=== PATIENT | female | born 1965 | race Caucasian/White ===

== ENCOUNTER 2023-02-23 09:27 | Emergency (ER) | payer MEDICARE, SELFPAY ==
[2023-02-23 09:28] VITALS: BP 146/94; PULSE 80; RESP 14; TEMP 36.3; O2SAT 100; BMI 38.6
--- NOTE | 2023-02-23 09:56 | CT_ITS ---
STUDY: CT ABDOMEN AND PELVIS WITH CONTRAST REASON FOR EXAM: Female, 57 years old. Abdominal pain. 4 day history of constipation. RADIATION DOSAGE (If Supplied By Facility): CTDIvol = ( 26.86 ) mGy, DLP = ( 1377.34 ) mGycm TECHNIQUE: Transaxial images were obtained from the dome of the diaphragm to the symphysis pubis without oral contrast. IV 100mL Isovue-300 was administered. Sagittal and coronal images were reconstructed. Individualized dose optimization techniques were used for this CT. COMPARISON: None. FINDINGS: Postsurgical changes are seen in the right breast. The visualized lung bases are unremarkable. The visualized portions of the heart are within normal limits. There is decreased attenuation of the liver consistent with steatosis. There is evidence of a 2.4 cm cyst in the inferior aspect of the right lobe of the liver. Normal gallbladder and extrahepatic biliary system. Normal spleen. Normal pancreas. Normal bilateral adrenal glands. Normal right kidney. Normal left kidney. There is a small hiatal hernia. Normal small intestine. A large amount of fecal material is seen in the rectosigmoid colon. Moderate amount is seen within the proximal colon. Increased markings are seen in the surrounding peritoneal fat surrounding the rectum. An inflammatory process should be ruled out. The appendix is visualized and appears normal. Normal abdominal aorta. Normal inferior vena cava. Normal retroperitoneum. Normal urinary bladder. Surgical clips are seen in the inguinal regions bilaterally more prominent on the left side. There are degenerative changes of the visualized lumbar spine. CT/Abdomen/Pelvis W IV Cont ONLY IMPRESSION: Large amount of fecal material is seen in the rectosigmoid colon as described. Increased markings are seen in the perirectal fat and presacral space. An inflammatory process should be ruled out. Rectal examination recommended to rule out possible abnormality. Fatty infiltration of the liver. 2.4 cm cyst in the inferior aspect of the right lobe of the liver. Electronically Signed: Dax Diaz MD at 11:08 EDT ,
--- NOTE | 2023-02-23 09:57 | EDS_ITS ---
HPI HPI - GI History of Present Illness Chief Complaint: Constipation Narrative Narrative: 57-year-old female presenting with constipation and abdominal pain. She states is been an ongoing issue for about 4 months. Initially she saw Dr. Rhoades but is now following Dr. Gilliland. She states that she is scheduled for a CT scan tomorrow of the abdomen pelvis, and a colonoscopy next Wednesday. Patient has not had any imaging done of her abdomen as of yet. She states that typically she will have a bowel movement every 4 days. She has to give herself laxatives to do so. Last night she took 2 Ex-Lax and this morning she took 2 more as well. She describes bowel leakage. Without loss of bladder or bowel control. No saddle anesthesia/ paresthesia, and no back pain. Patient states that she was straining so hard earlier on the toilet she got a little lightheaded. She is now complaining of nausea. She states that she has had 2 C-sections in her abdomen but no bowel surgeries. She states she has a history of breast cancer and had some abdominal fat redistributed to her breast for aesthetic reasons. Patient is not had a fever, chills, body aches. She is reporting weight loss but states she is on an 1100/day diet. [facility] Medical History (Updated 02/23/23 @ 09:59 by Sarah Reed) Breast cancer Constipation Trigeminal nerve disease or syndrome Home Medications ondansetron 4 mg disintegrating tablet 4 mg PO Q8H PRN PRN Nausea #14 tabs 02/23/23 [Rx Last Taken Unknown] Allergy/AdvReac Type Severity Reaction Status Date / Time Environmental Allergies: Allergy Other Verified 02/23/23 09:33 Uncoded [seasonal] Fish Containing Products Allergy PT UNSURE Verified 02/23/23 09:33 OF REACTION Penicillins Allergy Hives Verified 02/23/23 09:33 Social History Smoking Status: Never smoker ROS ROS ED Constitutional Constitutional ED: Denies chills or fever(s) ENT ENT ED: Denies rhinorrhea or sore throat Cardiovascular Cardiovascular: Denies chest pain or palpitations Respiratory/Chest Respiratory/Chest: Denies cough or dyspnea Gastrointestinal Gastrointestinal: Reports abdominal pain, constipation, diarrhea and nausea Genitourinary Genitourinary ED: Denies dysuria or hematuria Musculoskeletal Musculoskeletal: Denies arthralgias Integumentary Denies abscess Neurologic Neurologic: Denies headache(s) or paresthesias Psychiatric Psychiatric: Denies anxiety or depression Endocrine Endocrinology: Denies polydipsia or polyphagia EXAM Physical Exam Const Vital Signs: 02/23/23 09:28 Temperature 97.4 F L Temperature Source Temporal Pulse Rate 80 Respiratory Rate 14 Blood Pressure 146/94 H Blood Pressure Mean 111 Pulse Ox 100 Oxygen Delivery Method Room Air Positive well nourished and obese General Appearance ED: NAD Nutritional Appearance: obese HEENT Reports moist mucous membranes normocephalic and atraumatic Eyes PERRL General Eye ED: Negative for scleral icterus Resp normal respiratory effort Cardio regular rate and regular rhythm GI Inspection: Negative for abdominal distention Auscultation: hypoactive bowel sounds Palpation: Negative for guarding, rigid, mass or rebound tenderness present Back/Spine no CVA tenderness Neuro CN's II-XII intact bilaterally Sensorium / Orientation: alert Psych mental status grossly normal Skin no wounds MDM MDM MDM Narrative Medical decision making narrative: 57-year-old female presenting with abdominal pain, constipation which has been ongoing for about 4 months. She has been seeing Dr. Gilliland on an outpatient basis. She states that she is scheduled for a CT scan tomorrow and a colonoscopy on Wednesday. She reports diffuse abdominal pain. Her examination is fairly benign. Differential includes but is not limited to GERD, gastritis, peptic ulcer disease, acute cholecystitis, acute cholelithiasis, appendicitis, diverticulitis, pancreatitis, small bowel obstruction, neoplasm, viral etiology, food poisoning. Patient declines opiate analgesia. She is amenable to nausea medicine. I gave her Reglan. CBC to assess white blood cell count, hemoglobin, platelets, differential. CMP to assess liver function, renal function, electr olytes, glucose, anion gap. Lipase to assess for pancreatitis. CT of the abdomen pelvis with IV contrast will be obtained. CBC shows a normal white blood cell count at 10.4. Hemoglobin stable 13.4. Platelets normal at 250. Renal function and electrolytes unremarkable. LFTs are normal. Lipase is normal. Urinalysis negative for infection. Patient initially ordered Reglan however the patient refused. She was then given Zofran which helped her nausea. CT of the abdomen pelvis with IV contrast was obtained which shows concern for a large amount of stool in the rectosigmoid junction. Patient had a soapsuds enema and a very large bowel movement afterwards. She feels very much improved. I recommend she follow-up with Dr. Gilliland. Return precautions were discussed. Impression: 1. Abdominal pain 2. Nausea 3. Constipation Lab Data Attestation: I reviewed the patient's lab results. Labs: Laboratory Results - last 24 hr 02/23/23 02/23/23 02/23/23 10:10 10:10 10:20 WBC 10.4 RBC 4.19 L Hgb 13.4 Hct 39.2 MCV 93.6 MCH 32.0 MCHC 34.2 RDW Std Deviation 40.3 RDW Coeff of Jennifer 11.7 Plt Count 250 MPV 8.8 Immature Gran % (Auto) 0.300 Neut % (Auto) 89.7 H Lymph % (Auto) 5.3 L Carbon % (Auto) 4.2 Eos % (Auto) 0.4 Baso % (Auto) 0.1 Absolute Neuts (auto) 9.4 H Absolute Lymphs (auto) 0.55 L Nucleated RBC % 0 Differential Comment SCANNED Sodium 135 L Potassium 3.9 Chloride 106 Carbon Dioxide 26.0 Anion Gap 3 L BUN 13 Creatinine 0.74 Estim Creat Clear Calc 80.58 Est GFR (MDRD) Af Amer 103 Est GFR (MDRD) Non-Af 85 BUN/Creatinine Ratio 17.5 Glucose 120 H Calcium 8.9 Total Bilirubin 0.20 AST 22 ALT 34 Alkaline Phosphatase 78 Total Protein 7.1 Albumin 3.5 Globulin 3.6 Albumin/Globulin Ratio 1.0 Lipase 31 Urine Color Yellow Urine Clarity Sl. Cloudy Urine pH 5.0 Ur Specific [place] 1.015 Urine Protein 15 H Urine Glucose (UA) Normal Urine Ketones Negative Urine Occult Blood 25 H Urine Nitrite Negative Urine Bilirubin Negative Urine Urobilinogen Normal Ur Leukocyte Esterase Negative Urine RBC 0 SEEN Urine WBC 0 SEEN Ur Squamous Epith Cells 0-5 SEEN Urine Bacteria 0 SEEN Urine Mucus 0 SEEN Radiography Diagnostic Testing: Clinical Impression(s) from Imaging Studies Abdomen/Pelvis CT 02/23/23 09:56 IMPRESSION: Large amount of fecal material is seen in the rectosigmoid colon as described. Increased markings are seen in the perirectal fat and presacral space. An inflammatory process should be ruled out. Rectal examination recommended to rule out possible abnormality. Fatty infiltration of the liver. 2.4 cm cyst in the inferior aspect of the right lobe of the liver. Electronically Signed: Dax Diaz MD at 11:08 EDT , Discharge Plan Triage Chief Complaint: Constipation Other Complaint: Dizziness ED Provider: Gavin Julien Dx/Rx/DC Orders Instructions: ED Constipation (Adult) Prescriptions: New ondansetron 4 mg tablet,disintegrating 4 mg PO Q8H PRN PRN (Reason: Nausea) Qty: 14 0RF Primary Care Provider: Kiara Mckenzie Referrals: Renetta Benitez CARDIOLOGY NURSE PRACTITIONER, CARDIOLOGY NURSE PRACTITIONER-C [Non-Staff -Ordering Privileges] - Disposition Disposition: Home, Self Care
[2023-02-23 10:23] LABS: Absolute Lymphocyte Count 0.55 X10^3/uL (0.83-4.51); Absolute Neutrophil Count 9.4 X10^3/uL (2.0-7.7); Basophil# 0.01 X10^3/uL; Basophil% 0.1 % (0-1); Eosinophil# 0.04 X10^3/uL; Eosinophils% 0.4 % (0-5); Hematocrit 39.2 % (37-47); Hemoglobin 13.4 g/dL (12.0-15.0); Lymphocyte # 0.55 X10^3/ul (0.83-4.51); Lymphocyte % 5.3 % (19-41); Mean Corp Hgb Conc 34.2 g/dL (32-36); Mean Corpuscular Volume 93.6 fL (81-99); Mean Platelet Vol. 8.8 fl (6.2-12.0); Monocyte# 0.44 X10^3/uL; Monocyte% 4.2 % (0-10); NRBC Flagged by Analyzer 0 % (0-5); Neutrophil # 9.36 X10^3/uL (2.7-7.7); Neutrophil % 89.7 % (47-70); POSITIVE DIFFERENTIAL YES; Platelet Count 250 K/mm3 (150-450); RBC Distribution Width CV 11.7 % (11.6-14.6); RBC Distribution Width SD 40.3 fl (35.1-43.9); Red Blood Count 4.19 M/mm3 (4.2-5.4); White Blood Count 10.4 K/mm3 (4.4-11.0)
[2023-02-23 10:24] LABS: Differential Indicated SCAN CRITERIA MET
[2023-02-23 10:26] LABS: Bacteria 0 SEEN /hpf (None Seen); Mucous, Urine 0 SEEN /hpf (<or=2+); Red Blood Cells-Urine 0 SEEN /hpf (0-5); White Blood Cells 0 SEEN /hpf (0-5)
[2023-02-23 10:28] LABS: Color, Urine Yellow (Yellow); Glucose, Dipstick Normal (Normal); Ketone-Dipstick Negative (Negative); Leukocyte Esterase-Dipstick Negative /ul (Negative); Nitrite-Dipstick Negative (Negative); Occult Blood-Urine 25 /ul (Negative); Protein-Dipstick 15 mg/dl (Negative); Specific Gravity, Urine 1.015 (1.002-1.030); Urine Bilirubin Dipstick Negative (Negative); Urine Clarity Sl. Cloudy (Clear); Urine Urobilinogen Normal (Normal)
[2023-02-23 10:34] LABS: AST(SGOT) 22 U/L (15-37); Alanine Aminotransfer ALT/SGPT 34 U/L (13-56); Albumin, Serum 3.5 g/dL (3.2-5.0); Alkaline Phosphatase 78 U/L (45-117); Anion Gap 3 (5-15); BUN 13 mg/dL (7-18); BUN/Creat Ratio 17.5 RATIO (10-20); Calcium,Total 8.9 mg/dL (8.5-10.1); Chloride 106 mmol/L (98-107); Creatinine, Serum 0.74 mg/dL (0.55-1.02); EST Glomerular Filtration Rate 85 mL/min (>60); Est Glom Filt Rate - Afr Amer 103 mL/min (>60); Estimated Creatinine Clearance 80.58 ml/min; Globulin 3.6 g/dL (2.2-4.2); Glucose 120 mg/dL (74-106); Lipase 31 U/L (13-75); Potassium 3.9 mmol/L (3.5-5.1); Protein, Total 7.1 g/dL (6.4-8.2); Sodium Level 135 mmol/L (136-145)
[2023-02-23 10:34] LABS: Squamous Epithelial Cells - UA 0-5 SEEN /hpf (5-10)
[2023-02-23 10:52] LABS: Differential Comment SCANNED
--- NOTE | 2023-02-23 12:29 | ED.RN ---
PATIENT COMPLAINS OF PAIN TO LEFT AC IV SITE. STATES IN CT THE IV WAS LEAKING BUT THIS NURSE WAS NOT NOTIFIED OF SUCH. UNABLE TO WITHDRAWAL BLOOD OR PUSH SALINE THROUGH THE CATHETER AT THIS TIME. IV SITE ITSELF WAS UNREMARKABLE, NO SWELLING OR REDNESS NOTED. IV DISCONTINUED AND PO ZOFRAN REQUESTED. IV ZOFRAN WAS NOT ADMINISTERED THROUGH THE IV SITE ORDERED AND INITIALLY CHARTED.
[2023-02-23] MEDS: Ondansetron ODT 4 MG Tablet PO (12:40)
== END 2023-02-23 14:09 | disposition home or self-care (01) ==
PROVIDERS: Emergency Provider Student in an Organized Health Care Education/Training Program; PCP Internal Medicine; Visit Provider Student in an Organized Health Care Education/Training Program
DX: R10.9 Unspecified abdominal pain (principal); R11.0 Nausea; K59.00 Constipation, unspecified; E66.9 Obesity, unspecified
CPT/HCPCS: 74177; 80053; 81001; 83690; 85025; 99285; Q9967; A4216; J2405

== ENCOUNTER → 2023-04-12 | Outpatient (CLI) | payer MEDICARE, SELFPAY ==
--- NOTE | 2023-04-12 07:10 | CT_ITS ---
STUDY: CT MAXILLOFACIAL SINUSES REASON FOR EXAM: Female, 57 years old. CHRONIC SINUSITIS. Recurrent sinusitis right worse than left. RADIATION DOSAGE (If Supplied By Facility): CTDIvol = ( 33.06 ) mGy, DLP = ( 722.28 ) mGycm TECHNIQUE: The patient was scanned in a multi detector CT scanner. High resolution axial imaging was performed without the administration of intravenous contrast material. Sagittal and coronal images were reconstructed. Individualized dose optimization techniques were used for this CT. COMPARISON: None. FINDINGS: Small benign appearing submental lymph nodes. FRONTAL SINUSES: Normal aeration, without mucosal inflammatory disease. ETHMOIDAL SINUSES: Normal aeration, without mucosal inflammatory disease. MAXILLARY SINUSES: Minimal mucosal thickening of the maxillary sinuses bilaterally. SPHENOIDAL SINUSES: Normal aeration, without mucosal inflammatory disease. There is patency of the bilateral maxillary infundibuli with normal uncinate processes, ethmoid bullae, and hiatus semilunaris. Normal bilateral middle turbinates. Normal bilateral inferior turbinates. Normal midline nasal septum. There is patency of the bilateral nasal airways. The visualized osseous structures are normal. The visualized bilateral orbital contents are normal. CT/Sinus/Facial Bone IMPRESSION: Minimal mucosal thickening of the maxillary sinuses bilaterally. Electronically Signed: Dax Diaz MD at 12:58 EDT ,
== END | disposition home or self-care (01) ==
PROVIDERS: PCP Internal Medicine; Referring Provider Otolaryngology Otolaryngology/Facial Plastic Surgery; Visit Provider Otolaryngology Otolaryngology/Facial Plastic Surgery
DX: J32.8 Other chronic sinusitis (principal)
CPT/HCPCS: 70486

== ENCOUNTER → 2024-01-03 | Outpatient (CLI) | payer MEDICARE, SELFPAY ==
--- NOTE | 2024-01-03 10:14 | RAD_ITS ---
STUDY: X-RAY - RIGHT KNEE REASON FOR EXAM: Female, 58 years old. INFLAMMATORY POLYARTHROPATHY TECHNIQUE: 4 view(s) of the knee. COMPARISON: None. FINDINGS: Normal visualized distal femur. Normal visualized proximal tibia and fibula. Normal proximal tibiofibular articulation. There is moderate degenerative arthrosis of the medial femorotibial compartment with moderate joint space narrowing. Normal lateral femorotibial compartment. There is severe degenerative arthrosis of the patellofemoral articulation. Minimal joint effusion. RAD/Knee 4 or More Views IMPRESSION: Degenerative arthrosis. Minimal joint effusion. Electronically Signed: Dax Diaz MD at 11:23 EST ,
--- NOTE | 2024-01-03 10:14 | RAD_ITS ---
STUDY: X-RAY - LEFT KNEE REASON FOR EXAM: Female, 58 years old. INFLAMMATORY POLYARTHROPATHY TECHNIQUE: 4 view(s) of the knee. COMPARISON: None. FINDINGS: Normal visualized distal femur. Normal visualized proximal tibia and fibula. Normal proximal tibiofibular articulation. There is moderate degenerative arthrosis of the medial femorotibial compartment with moderate joint space narrowing. Normal lateral femorotibial compartment. There is severe degenerative arthrosis of the patellofemoral articulation. The soft tissue structures are unremarkable. RAD/Knee 4 or More Views IMPRESSION: Degenerative arthrosis. Electronically Signed: Dax Diaz MD at 11:24 EST ,
[2024-01-03 12:39] LABS: Erythrocyte Sedimentation Rate 10 mm/hr (0-30)
[2024-01-03 12:40] LABS: Absolute Lymphocyte Count 1.22 X10^3/uL (0.83-4.51); Absolute Neutrophil Count 2.5 X10^3/uL (2.0-7.7); Basophil# 0.03 X10^3/uL; Basophil% 0.7 % (0-1); Eosinophil# 0.11 X10^3/uL; Eosinophils% 2.6 % (0-5); Hematocrit 40.1 % (37-47); Hemoglobin 13.2 g/dL (12.0-15.0); Lymphocyte # 1.22 X10^3/ul (0.83-4.51); Lymphocyte % 29.3 % (19-41); Mean Corp Hgb Conc 32.9 g/dL (32-36); Mean Corpuscular Volume 94.1 fL (81-99); Mean Platelet Vol. 9.5 fl (6.2-12.0); Monocyte# 0.29 X10^3/uL; NRBC Flagged by Analyzer 0 % (0-5); Neutrophil % 60.2 % (47-70); Platelet Count 247 K/mm3 (150-450); RBC Distribution Width CV 11.9 % (11.6-14.6); RBC Distribution Width SD 41.3 fl (35.1-43.9); Red Blood Count 4.26 M/mm3 (4.2-5.4); White Blood Count 4.2 K/mm3 (4.4-11.0)
[2024-01-03 13:26] LABS: AST(SGOT) 17 U/L (15-37); Alanine Aminotransfer ALT/SGPT 21 U/L (13-56); Albumin, Serum 3.7 g/dL (3.2-5.0); Alkaline Phosphatase 69 U/L (45-117); Anion Gap 5 (5-15); BUN 14 mg/dL (7-18); BUN/Creat Ratio 18.4 RATIO (10-20); CRP < 2.90 mg/L (0.0-3.0); Calcium,Total 9.2 mg/dL (8.5-10.1); Chloride 106 mmol/L (98-107); Creatinine, Serum 0.76 mg/dL (0.55-1.02); EST Glomerular Filtration Rate 83 mL/min (>60); Est Glom Filt Rate - Afr Amer 100 mL/min (>60); Globulin 3.6 g/dL (2.2-4.2); Glucose 104 mg/dL (74-106); Potassium 4.6 mmol/L (3.5-5.1); Protein, Total 7.3 g/dL (6.4-8.2); Rheumatoid Factor < 10.0 IU/mL (<15); Sodium Level 137 mmol/L (136-145)
[2024-01-03 13:58] LABS: Hepatitis B Surface Antibody Non-Reactive; Hepatitis B Surface Antigen Non-Reactive (Nonreactive); Hepatitis C Antibody Non-Reactive (Nonreactive)
[2024-01-04 13:08] LABS: CCP IgG Antibodies 6 units (0-19)
[2024-01-04 14:09] LABS: ANTINUCLEAR ANTIBODIES DIRECT Negative (Negative)
== END | disposition home or self-care (01) ==
PROVIDERS: PCP Internal Medicine; Referring Provider Internal Medicine Rheumatology; Visit Provider Internal Medicine Rheumatology
DX: M06.4 Inflammatory polyarthropathy (principal); M79.7 Fibromyalgia
CPT/HCPCS: 36415; 73564; 80053; 85025; 85652; 86038; 86140; 86200; 86431; 86706; 86803; 87340

== ENCOUNTER → 2024-03-06 | Outpatient (CLI) | payer MEDICARE, SELFPAY ==
[2024-03-06 17:23] LABS: Absolute Neutrophil Count 2.8 X10^3/uL (2.0-7.7); Basophil# 0.02 X10^3/uL; Basophil% 0.5 % (0-1); Eosinophil# 0.17 X10^3/uL; Eosinophils% 3.9 % (0-5); Hematocrit 35.9 % (37-47); Hemoglobin 12.1 g/dL (12.0-15.0); Lymphocyte % 20.9 % (19-41); Mean Corp Hgb Conc 33.7 g/dL (32-36); Mean Corpuscular Hgb 31.8 pg (27.0-32.0); Mean Corpuscular Volume 94.2 fL (81-99); Mean Platelet Vol. 8.4 fl (6.2-12.0); Monocyte# 0.39 X10^3/uL; NRBC Flagged by Analyzer 0 % (0-5); Neutrophil # 2.82 X10^3/uL (2.7-7.7); Neutrophil % 65.5 % (47-70); Platelet Count 239 K/mm3 (150-450); RBC Distribution Width CV 12.6 % (11.6-14.6); RBC Distribution Width SD 43.6 fl (35.1-43.9); Red Blood Count 3.81 M/mm3 (4.2-5.4); White Blood Count 4.3 K/mm3 (4.4-11.0)
[2024-03-06 18:00] LABS: AST(SGOT) 16 U/L (15-37); Alanine Aminotransfer ALT/SGPT 24 U/L (13-56); Albumin, Serum 3.4 g/dL (3.2-5.0); Alkaline Phosphatase 63 U/L (45-117); Anion Gap 4 (5-15); BUN 12 mg/dL (7-18); BUN/Creat Ratio 16.2 RATIO (10-20); Calcium,Total 8.7 mg/dL (8.5-10.1); Chloride 103 mmol/L (98-107); Creatinine, Serum 0.74 mg/dL (0.55-1.02); EST Glomerular Filtration Rate 85 mL/min (>60); Est Glom Filt Rate - Afr Amer 103 mL/min (>60); Globulin 3.3 g/dL (2.2-4.2); Glucose 124 mg/dL (74-106); Potassium 3.9 mmol/L (3.5-5.1); Protein, Total 6.7 g/dL (6.4-8.2); Sodium Level 137 mmol/L (136-145)
== END | disposition home or self-care (01) ==
LOC: MTLAB 16:08
PROVIDERS: PCP Internal Medicine; Referring Provider Internal Medicine Rheumatology; Visit Provider Internal Medicine Rheumatology
DX: M06.4 Inflammatory polyarthropathy (principal); Z79.899 Other long term (current) drug therapy
CPT/HCPCS: 36415; 80053; 85025

== ENCOUNTER → 2024-05-09 | Outpatient (CLI) | payer MEDICARE, SELFPAY ==
[2024-05-09 17:45] LABS: Absolute Lymphocyte Count 1.32 X10^3/uL (0.83-4.51); Absolute Neutrophil Count 2.7 X10^3/uL (2.0-7.7); Basophil# 0.02 X10^3/uL; Basophil% 0.5 % (0-1); Eosinophils% 2.3 % (0-5); Hematocrit 36.5 % (37-47); Hemoglobin 12.5 g/dL (12.0-15.0); Lymphocyte # 1.32 X10^3/ul (0.83-4.51); Mean Corp Hgb Conc 34.2 g/dL (32-36); Mean Corpuscular Hgb 32.1 pg (27.0-32.0); Mean Corpuscular Volume 93.6 fL (81-99); Mean Platelet Vol. 8.8 fl (6.2-12.0); Monocyte# 0.28 X10^3/uL; Monocyte% 6.4 % (0-10); NRBC Flagged by Analyzer 0 % (0-5); Neutrophil # 2.67 X10^3/uL (2.7-7.7); Neutrophil % 60.6 % (47-70); Platelet Count 272 K/mm3 (150-450); RBC Distribution Width CV 11.8 % (11.6-14.6); RBC Distribution Width SD 39.9 fl (35.1-43.9); White Blood Count 4.4 K/mm3 (4.4-11.0)
[2024-05-09 18:27] LABS: AST(SGOT) 9 U/L (15-37); Alanine Aminotransfer ALT/SGPT 20 U/L (13-56); Albumin, Serum 3.5 g/dL (3.2-5.0); Alkaline Phosphatase 74 U/L (45-117); Anion Gap 7 (5-15); BUN 10 mg/dL (7-18); Calcium,Total 8.8 mg/dL (8.5-10.1); Chloride 98 mmol/L (98-107); Creatinine, Serum 0.77 mg/dL (0.55-1.02); EST Glomerular Filtration Rate 81 mL/min (>60); Est Glom Filt Rate - Afr Amer 98 mL/min (>60); Globulin 3.6 g/dL (2.2-4.2); Glucose 119 mg/dL (74-106); Potassium 4.1 mmol/L (3.5-5.1); Protein, Total 7.1 g/dL (6.4-8.2); Sodium Level 133 mmol/L (136-145)
== END | disposition home or self-care (01) ==
LOC: MTLAB 16:20
PROVIDERS: PCP Internal Medicine; Referring Provider Internal Medicine Rheumatology; Visit Provider Internal Medicine Rheumatology
DX: M06.4 Inflammatory polyarthropathy (principal); M79.7 Fibromyalgia; Z79.899 Other long term (current) drug therapy
CPT/HCPCS: 36415; 80053; 85025

== ENCOUNTER → 2024-06-30 | Outpatient (CLI) | payer MEDICARE, SELFPAY ==
[2024-06-30 15:00] LABS: Absolute Lymphocyte Count 1.04 X10^3/uL (0.83-4.51); Absolute Neutrophil Count 2.1 X10^3/uL (2.0-7.7); Basophil# 0.04 X10^3/uL; Basophil% 1.1 % (0-1); Eosinophil# 0.19 X10^3/uL; Eosinophils% 5.2 % (0-5); Hematocrit 38.5 % (37-47); Lymphocyte # 1.04 X10^3/ul (0.83-4.51); Lymphocyte % 28.3 % (19-41); Mean Corp Hgb Conc 33.8 g/dL (32-36); Mean Corpuscular Volume 94.8 fL (81-99); Mean Platelet Vol. 9.5 fl (6.2-12.0); Monocyte# 0.31 X10^3/uL; Monocyte% 8.4 % (0-10); NRBC Flagged by Analyzer 0 % (0-5); Neutrophil # 2.09 X10^3/uL (2.7-7.7); Platelet Count 231 K/mm3 (150-450); RBC Distribution Width CV 11.8 % (11.6-14.6); RBC Distribution Width SD 39.9 fl (35.1-43.9); Red Blood Count 4.06 M/mm3 (4.2-5.4); White Blood Count 3.7 K/mm3 (4.4-11.0)
[2024-06-30 15:43] LABS: AST(SGOT) 15 U/L (15-37); Alanine Aminotransfer ALT/SGPT 21 U/L (13-56); Albumin, Serum 3.6 g/dL (3.2-5.0); Alkaline Phosphatase 75 U/L (45-117); Anion Gap 11 (5-15); BUN 11 mg/dL (7-18); BUN/Creat Ratio 14.2 RATIO (10-20); Calcium,Total 9.2 mg/dL (8.5-10.1); Chloride 100 mmol/L (98-107); Creatinine, Serum 0.78 mg/dL (0.55-1.02); EST Glomerular Filtration Rate 81 mL/min (>60); Est Glom Filt Rate - Afr Amer 97 mL/min (>60); Globulin 3.7 g/dL (2.2-4.2); Glucose 130 mg/dL (74-106); Potassium 4.1 mmol/L (3.5-5.1); Protein, Total 7.3 g/dL (6.4-8.2); Sodium Level 133 mmol/L (136-145)
== END | disposition home or self-care (01) ==
LOC: MTLAB 12:38
PROVIDERS: PCP Internal Medicine; Referring Provider Internal Medicine Rheumatology; Visit Provider Internal Medicine Rheumatology
DX: M06.4 Inflammatory polyarthropathy (principal); M79.7 Fibromyalgia; M18.12 Unilateral primary osteoarthritis of first carpometacarpal joint, left hand; M17.0 Bilateral primary osteoarthritis of knee; Z79.899 Other long term (current) drug therapy
CPT/HCPCS: 36415; 80053; 85025

== ENCOUNTER 2024-07-24 22:34 | Emergency (ER) | payer MEDICARE, SELFPAY ==
[2024-07-24 22:35] VITALS: BP 109/70; PULSE 66; RESP 18; TEMP 36.6; O2SAT 99; BMI 40.0
--- NOTE | 2024-07-24 23:03 | CT_ITS ---
INDICATION: chest/back pain / ? Dissection COMPARISON: 02/23/[address] A radiation dose optimization technique was used for this scan. RADIATION DOSAGE (If Supplied By Facility): CTDIvol/DLP = ( 17.47 ) / ( 1381.47 ) mGy/mGycm FINDINGS: Contrast enhanced serial CTA axial images through the chest, abdomen, and pelvis with coronal and sagittal reformatted series. IV Contrast dosage and agent: 100 cc Isovue-370 IV. MEDIASTINUM: Distal pulmonary artery branch vessel evaluation is suboptimal secondary to timing of contrast bolus as well as respiratory motion, however, there are no obvious proximal pulmonary artery filling defects. Mediastinum is otherwise unremarkable. AORTA/GREAT VESSELS: No acute thoracoabdominal aortic abnormality. Major abdominal ostia are patent. LUNG PARENCHYMA: No acute pulmonary parenchymal abnormality. PLEURA: No pleural effusion. No pneumothorax. CHEST/ABDOMINAL WALL: Right mastectomy change with TRAM flap reconstruction. Left breast asymmetric soft tissue densities. APPENDIX: Appendix is not definitely identified, however, there are no significant right lower quadrant inflammatory fat changes or focal fluid collection to suggest acute appendicitis. PANCREAS: No peripancreatic fat stranding. BOWEL/MESENTERY: No dilated bowel loops. No significant free fluid. No free air. Colonic diverticulosis without evidence of diverticulitis. GALLBLADDER: No pericholecystic fat stranding. LIVER/STOMACH: Right posterior hepatic cyst. Moderate hiatal hernia. Fatty liver. URINARY COLLECTING SYSTEM/ KIDNEYS: No evidence of urinary collecting system obstruction. No significant renal parenchymal abnormality. BONES: Unremarkable for age. CT/CTA Chst, Abd, Pel W and/or WO IMPRESSION: No acute thoracoabdominal aortic abnormality. Distal pulmonary artery branch vessel evaluation is suboptimal secondary to timing of contrast bolus as well as respiratory motion, however, there is no obvious proximal pulmonary embolus. Appendix is not definitely identified, however, there are no significant right lower quadrant inflammatory fat changes or focal fluid collection to suggest acute appendicitis. Otherwise, no acute abdominal abnormality is identified, to include no evidence of obstructing ureteral calculus. Left breast asymmetric soft tissue densities in this patient with history of breast cancer. Recommend follow-up mammographic department evaluation. Fatty liver. Moderate hiatal hernia. Electronically Signed: Shiva Phipps MD at 0:30 EDT ,
[2024-07-24] MEDS: 0.9% Normal Saline (1000mL) 1,000 ML 999 ML IV (23:09)
[2024-07-24 23:15] LABS: Absolute Lymphocyte Count 1.63 X10^3/uL (0.83-4.51); Absolute Neutrophil Count 2.1 X10^3/uL (2.0-7.7); Eosinophil# 0.16 X10^3/uL; Eosinophils% 3.7 % (0-5); Hematocrit 34.7 % (37-47); Hemoglobin 11.8 g/dL (12.0-15.0); Lymphocyte # 1.63 X10^3/ul (0.83-4.51); Lymphocyte % 37.7 % (19-41); Mean Corpuscular Hgb 32.2 pg (27.0-32.0); Mean Corpuscular Volume 94.8 fL (81-99); Mean Platelet Vol. 8.8 fl (6.2-12.0); Monocyte# 0.47 X10^3/uL; Monocyte% 10.9 % (0-10); NRBC Flagged by Analyzer 0 % (0-5); Neutrophil # 2.05 X10^3/uL (2.7-7.7); Neutrophil % 47.5 % (47-70); Platelet Count 217 K/mm3 (150-450); RBC Distribution Width CV 11.7 % (11.6-14.6); RBC Distribution Width SD 40.3 fl (35.1-43.9); Red Blood Count 3.66 M/mm3 (4.2-5.4); White Blood Count 4.3 K/mm3 (4.4-11.0)
[2024-07-24 23:35] VITALS: BP 117/66; PULSE 63; RESP 18; O2SAT 99
[2024-07-24 23:57] LABS: International Normalized Ratio 0.9; Prothrombin Time (Protime)PT. 12.5 SECONDS (11.7-14.9)
[2024-07-25] VITALS: BP 106/68; PULSE 62; RESP 16; O2SAT 97
[2024-07-25 00:08] LABS: Anion Gap 10 (5-15); BUN 12 mg/dL (7-18); Calcium,Total 8.8 mg/dL (8.5-10.1); Chloride 104 mmol/L (98-107); EST Glomerular Filtration Rate 78 mL/min (>60); Est Glom Filt Rate - Afr Amer 94 mL/min (>60); Estimated Creatinine Clearance 102.96 ml/min; Glucose 122 mg/dL (74-106); Magnesium 1.9 mg/dL (1.6-2.6); Potassium 3.6 mmol/L (3.5-5.1); Sodium Level 138 mmol/L (136-145); Troponin-I HS 4 pg/mL (3.0-54.0)
[2024-07-25 01:00] VITALS: BP 128/75; PULSE 64; RESP 16; O2SAT 96
[2024-07-25 01:43] LABS: Troponin-I HS 5 pg/mL (3.0-54.0)
--- NOTE | 2024-07-25 01:58 | EDS_ITS ---
HPI History of Present Illness Chief Complaint: Chest Pain Informant: patient, family and EMS Narrative Narrative: Patient is a 58-year-old female with past medical history of breast cancer as well as hypertension and trigeminal neuralgia. She states she was sleeping when she awoke with sharp pain radiating from the upper back into the left chest wall. She states that folic it was difficult to take a deep breath secondary to the pain. She denies nausea vomiting or diaphoresis associated with this. She states that she was unsure if this was cardiac in nature or not and therefore EMS was called to bring her in for evaluation. Patient denies any history of DVT/PE she also denies any recent surgery but does endorse recent travel in the car of approximately 10-hours. [facility] Medical History (Updated 07/25/24 @ 02:[address] Shyam Melendez DO) Trigeminal nerve disease or syndrome Breast cancer Constipation Home Medications ?Medication ?Instructions ?Recorded ?Last Taken ?Type baclofen 10 mg tablet 5 - 10 mg PO Q6H PRN 07/24/24 07/24/24 History bupropion HCl 300 mg 24 hr tablet, 300 mg PO DAILY 07/24/24 Unknown History extended release carbamazepine 200 mg tablet 400 mg PO DAILY 07/24/24 Unknown History duloxetine 30 mg capsule,delayed 30 mg PO DAILY 07/24/24 Unknown History release duloxetine 60 mg capsule,delayed 60 mg PO DAILY 07/24/24 Unknown History release folic acid 1 mg tablet 2 mg PO DAILY 07/24/24 Unknown History gabapentin 600 mg tablet 600 mg PO TID 07/24/24 Unknown History leucovorin calcium 25 mg tablet 25 mg PO QWEEK 07/24/24 Unknown History lisinopril 10 mg tablet 10 mg PO DAILY 07/24/24 Unknown History metformin 500 mg tablet 500 mg PO BID 07/24/24 Unknown History multivitamin 1 tab PO DAILY 07/24/24 Unknown History Allergy/AdvReac Type Severity Reaction Status Date / Time Environmental Allergies: Allergy Other Verified 02/23/23 09:33 Uncoded (seasonal) Fish Containing Products Allergy PT UNSURE Verified 07/24/24 22:40 OF REACTION Penicillins Allergy Hives Verified 07/24/24 22:40 Social History Smoking Status: Never smoker ROS ROS ED Constitutional Constitutional ED: Denies chills or fever(s) Eyes Eyes: Denies blurry vision or change in vision ENT ENT ED: Denies sore throat Cardiovascular Cardiovascular: Reports chest pain; Denies palpitations or racing heartbeat Respiratory/Chest Respiratory/Chest: Reports dyspnea; Denies cough Gastrointestinal Gastrointestinal: Denies abdominal pain, diarrhea, nausea or vomiting Genitourinary Genitourinary ED: Denies dysuria Musculoskeletal Musculoskeletal: Reports back pain Integumentary Denies rash Neurologic Neurologic: Denies headache(s), paresthesias or weakness Hematologic/Lymphatic Hematologic/Lymphatic: Denies easy bruising Allergic/Immunologic Allergic/Immunologic ED: Denies mouth swelling or tongue swelling EXAM Physical Exam Const Vital Signs: 07/24/24 22:35 07/24/24 22:41 07/24/24 23:35 Temperature 97.9 F Temperature Source Oral Pulse Rate 66 63 Respiratory Rate 18 18 Respiratory Effort Normal Non-Labored Blood Pressure 109/70 117/66 Blood Pressure Mean 83 83 Pulse Ox 99 99 Oxygen Delivery Method Room Air Room Air 07/25/24 00:00 07/25/24 01:00 07/25/24 02:00 Temperature Temperature Source Pulse Rate 62 64 64 Respiratory Rate 16 16 16 Respiratory Effort Blood Pressure 106/68 128/75 H 128/71 H Blood Pressure Mean 80 92 90 Pulse Ox 97 96 98 Oxygen Delivery Method Room Air Room Air Room Air 07/25/24 02:00 Temperature 97.8 F Temperature Source Pulse Rate 66 Respiratory Rate 16 Respiratory Effort Blood Pressure 127/77 H Blood Pressure Mean 93 Pulse Ox 97 Oxygen Delivery Method Positive well nourished and well developed General Appearance ED: well developed; Negative for pallor HEENT HEENT Narrative: No tongue or lip swelling no oral lesions no airway edema or compromise No signs of infection noted in the posterior pharynx Eyes PERRL and EOMs intact bilaterally General Eye ED: Negative for scleral icterus Neck supple Neck Narrative: No nuchal rigidity or meningeal signs No carotid bruit noted Chest Wall palpation of chest normal Chest Narrative: No bony deformity or crepitance Resp normal respiratory effort and clear to auscultation bilaterally Cardio regular rate and regular rhythm Rate: other Other Details: Heart is regular rate and rhythm without murmurs rubs or gallops Radial and carotid pulses are equal and symmetric GI normal to inspection, nondistended, normoactive bowel sounds, non-tender, non- distended and no masses GI Narrative: No voluntary guarding or rigidity or pulsatile mass Auscultation: normoactive bowel sounds Palpation: soft Back/Spine no CVA tenderness Extremity normal to inspection Extremity Narrative: No asymmetric edema no pitting edema negative Homans' sign bilaterally Neuro oriented x3, CN's II-XII intact bilaterally and no sensory deficits noted Sensorium / Orientation: alert Motor Exam: strength 5/5 throughout Psych mental status grossly normal Skin no rashes or lesions noted and no wounds General Skin Exam: Negative for jaundice or pallor MDM MDM MDM Narrative Medical decision making narrative: Patient arrived to the ER with improvement but not complete resolution of chest discomfort. She reported the pain woke her from sleep and was radiating from the back into the chest wall. Differential diagnosis is for acute coronary syndrome versus cardiac dysrhythmia versus pneumonia versus pneumothorax versus pulmonary embolus versus dissection. Secondary to this basic labs were obtained as well as a CTA of the chest abdomen pelvis. CTA revealed no acute pathology and lab work showed initial troponin of 4 with a 2-hour delta of 5 which is not clinically significant. On reevaluation patient is resting comfortably and has had complete resolution of symptoms. Therefore at this time with stable vitals and negative workup I do not feel there is need for further evaluation in the ER and she is otherwise safe for discharge History & Record Review Discussion w/independent historian: Patient and Significant other Lab Data Attestation: I reviewed the patient's lab results. Labs: Laboratory Results - last 24 hr 07/24/24 07/25/24 22:46 01:15 WBC 4.3 L RBC 3.66 L Hgb 11.8 L Hct 34.7 L MCV 94.8 MCH 32.2 H MCHC 34.0 RDW Std Deviation 40.3 RDW Coeff of Jennifer 11.7 Plt Count 217 MPV 8.8 Immature Gran % (Auto) 0.200 Neut % (Auto) 47.5 Lymph % (Auto) 37.7 [place] % (Auto) 10.9 H Eos % (Auto) 3.7 Baso % (Auto) 0.0 Absolute Neuts (auto) 2.1 Absolute Lymphs (auto) 1.63 Nucleated RBC % 0 PT 12.5 INR 0.9 APTT 27.0 Sodium 138 Potassium 3.6 Chloride 104 Carbon Dioxide 24.0 Anion Gap 10 BUN 12 Creatinine 0.80 Estim Creat Clear Calc 102.96 Est GFR (MDRD) Af Amer 94 Est GFR (MDRD) Non-Af 78 BUN/Creatinine Ratio 15.0 Glucose 122 H Calcium 8.8 Magnesium 1.9 Troponin I High Sens 4 5 Radiography Diagnostic Testing: Clinical Impression(s) from Imaging Studies Chest/Abdomen/Pelvis CTA 07/24/24 23:03 IMPRESSION: No acute thoracoabdominal aortic abnormality. Distal pulmonary artery branch vessel evaluation is suboptimal secondary to timing of contrast bolus as well as respiratory motion, however, there is no obvious proximal pulmonary embolus. Appendix is not definitely identified, however, there are no significant right lower quadrant inflammatory fat changes or focal fluid collection to suggest acute appendicitis. Otherwise, no acute abdominal abnormality is identified, to include no evidence of obstructing ureteral calculus. Left breast asymmetric soft tissue densities in this patient with history of breast cancer. Recommend follow-up mammographic department evaluation. Fatty liver. Moderate hiatal hernia. Electronically Signed: Shiva Phipps MD at 0:30 EDT , Discharge Plan Triage Chief Complaint: Chest Pain ED Provider: Shyam Melendez Dx/Rx/DC Orders Clinical Impression: Nonspecific chest pain, Trigeminal neuralgia, Hypertension, History of breast cancer Instructions: ED Chest Pain, Uncertain Cause Prescriptions: No Action carbamazepine 200 mg tablet 400 mg PO DAILY gabapentin 600 mg tablet 600 mg PO TID metformin 500 mg tablet 500 mg PO BID leucovorin calcium 25 mg tablet 25 mg PO QWEEK baclofen 10 mg tablet 5 - 10 mg PO Q6H PRN lisinopril 10 mg tablet 10 mg PO DAILY folic acid 1 mg tablet 2 mg PO DAILY bupropion HCl 300 mg tablet extended release 24 hr 300 mg PO DAILY duloxetine 30 mg capsule,delayed release(DR/EC) 30 mg PO DAILY duloxetine 60 mg capsule,delayed release(DR/EC) 60 mg PO DAILY multivitamin Tablet 1 tab PO DAILY Primary Care Provider: Kiara Mckenzie Referrals: Kiara Mckenzie MD [Primary Care Provider] - Print Language: Uzbek Disposition Disposition: Home, Self Care Discharge Date/Time: 07/25/24 02:13
[2024-07-25 02:00] VITALS: BP 127/77; BP 128/71; PULSE 64; PULSE 66; RESP 16; TEMP 36.6; O2SAT 97; O2SAT 98
== END 2024-07-25 02:13 | disposition home or self-care (01) ==
PROVIDERS: Emergency Provider Emergency Medicine; PCP Internal Medicine; Visit Provider Emergency Medicine
DX: R07.89 Other chest pain (principal); I10 Essential (primary) hypertension; G50.0 Trigeminal neuralgia; Z85.3 Personal history of malignant neoplasm of breast; Z88.0 Allergy status to penicillin; Z79.899 Other long term (current) drug therapy
CPT/HCPCS: 71275; 74174; 80048; 83735; 84484; 85025; 85610; 85730; 93005; 99283; Q9967; A4216

== ENCOUNTER → 2024-08-21 | Outpatient (CLI) | payer MEDICARE, SELFPAY ==
[2024-08-21 17:51] LABS: Absolute Lymphocyte Count 1.69 X10^3/uL (0.83-4.51); Absolute Neutrophil Count 2.8 X10^3/uL (2.0-7.7); Basophil# 0.02 X10^3/uL; Basophil% 0.4 % (0-1); Eosinophil# 0.16 X10^3/uL; Eosinophils% 3.1 % (0-5); Hematocrit 37.7 % (37-47); Hemoglobin 12.7 g/dL (12.0-15.0); Lymphocyte # 1.69 X10^3/ul (0.83-4.51); Lymphocyte % 32.9 % (19-41); Mean Corp Hgb Conc 33.7 g/dL (32-36); Mean Corpuscular Hgb 32.6 pg (27.0-32.0); Mean Corpuscular Volume 96.7 fL (81-99); Mean Platelet Vol. 8.9 fl (6.2-12.0); Monocyte# 0.45 X10^3/uL; Monocyte% 8.8 % (0-10); NRBC Flagged by Analyzer 0 % (0-5); Neutrophil % 54.6 % (47-70); Platelet Count 259 K/mm3 (150-450); RBC Distribution Width CV 11.9 % (11.6-14.6); RBC Distribution Width SD 41.6 fl (35.1-43.9); White Blood Count 5.1 K/mm3 (4.4-11.0)
[2024-08-21 18:24] LABS: ALB/GLOB Ratio 1.1 RATIO (0.9-2.4); AST(SGOT) 13 U/L (15-37); Alanine Aminotransfer ALT/SGPT 23 U/L (13-56); Albumin, Serum 3.8 g/dL (3.2-5.0); Alkaline Phosphatase 77 U/L (45-117); Anion Gap 7 (5-15); BUN 16 mg/dL (7-18); BUN/Creat Ratio 20.9 RATIO (10-20); Calcium,Total 9.1 mg/dL (8.5-10.1); Chloride 103 mmol/L (98-107); Creatinine, Serum 0.76 mg/dL (0.55-1.02); EST Glomerular Filtration Rate 82 mL/min (>60); Est Glom Filt Rate - Afr Amer 99 mL/min (>60); Globulin 3.4 g/dL (2.2-4.2); Glucose 149 mg/dL (74-106); Potassium 3.9 mmol/L (3.5-5.1); Protein, Total 7.2 g/dL (6.4-8.2); Sodium Level 137 mmol/L (136-145)
== END | disposition home or self-care (01) ==
PROVIDERS: PCP Internal Medicine; Referring Provider Internal Medicine Rheumatology; Visit Provider Internal Medicine Rheumatology
DX: M06.4 Inflammatory polyarthropathy (principal); Z79.899 Other long term (current) drug therapy; M79.7 Fibromyalgia
CPT/HCPCS: 36415; 80053; 85025

== ENCOUNTER → 2024-11-24 | Outpatient (CLI) | payer MEDICARE, SELFPAY ==
[2024-11-24 17:41] LABS: Absolute Lymphocyte Count 1.58 X10^3/uL (0.83-4.51); Absolute Neutrophil Count 3.5 X10^3/uL (2.0-7.7); Basophil# 0.03 X10^3/uL; Basophil% 0.5 % (0-1); Eosinophil# 0.27 X10^3/uL; Eosinophils% 4.7 % (0-5); Hematocrit 38.4 % (37-47); Hemoglobin 12.8 g/dL (12.0-15.0); Lymphocyte # 1.58 X10^3/ul (0.83-4.51); Lymphocyte % 27.3 % (19-41); Mean Corp Hgb Conc 33.3 g/dL (32-36); Mean Corpuscular Hgb 31.8 pg (27.0-32.0); Mean Corpuscular Volume 95.5 fL (81-99); Mean Platelet Vol. 8.9 fl (6.2-12.0); Monocyte# 0.41 X10^3/uL; Monocyte% 7.1 % (0-10); NRBC Flagged by Analyzer 0 % (0-5); Neutrophil # 3.48 X10^3/uL (2.7-7.7); Neutrophil % 60.1 % (47-70); Platelet Count 254 K/mm3 (150-450); RBC Distribution Width CV 11.6 % (11.6-14.6); RBC Distribution Width SD 40.4 fl (35.1-43.9); Red Blood Count 4.02 M/mm3 (4.2-5.4); White Blood Count 5.8 K/mm3 (4.4-11.0)
[2024-11-24 18:04] LABS: ALB/GLOB Ratio 1.1 RATIO (0.9-2.4); AST(SGOT) 15 U/L (15-37); Alanine Aminotransfer ALT/SGPT 26 U/L (13-56); Albumin, Serum 3.6 g/dL (3.2-5.0); Alkaline Phosphatase 78 U/L (45-117); Anion Gap 4 (5-15); BUN 12 mg/dL (7-18); BUN/Creat Ratio 12.9 RATIO (10-20); Calcium,Total 8.8 mg/dL (8.5-10.1); Chloride 103 mmol/L (98-107); Creatinine, Serum 0.93 mg/dL (0.55-1.02); EST Glomerular Filtration Rate 65 mL/min (>60); Est Glom Filt Rate - Afr Amer 79 mL/min (>60); Globulin 3.2 g/dL (2.2-4.2); Glucose 182 mg/dL (74-106); Potassium 4.8 mmol/L (3.5-5.1); Protein, Total 6.8 g/dL (6.4-8.2); Sodium Level 134 mmol/L (136-145)
== END | disposition home or self-care (01) ==
LOC: MTLAB 16:34
PROVIDERS: PCP Internal Medicine; Referring Provider Internal Medicine Rheumatology; Visit Provider Internal Medicine Rheumatology
DX: M06.4 Inflammatory polyarthropathy (principal); Z79.899 Other long term (current) drug therapy; M79.7 Fibromyalgia
CPT/HCPCS: 36415; 80053; 85025

== ENCOUNTER → 2025-01-16 | Outpatient (CLI) | payer MEDICARE, SELFPAY ==
[2025-01-16 10:49] LABS: Absolute Lymphocyte Count 0.74 X10^3/uL (0.83-4.51); Absolute Neutrophil Count 5.2 X10^3/uL (2.0-7.7); Basophil# 0.01 X10^3/uL; Basophil% 0.2 % (0-1); Eosinophil# 0.12 X10^3/uL; Eosinophils% 1.8 % (0-5); Hematocrit 37.4 % (37-47); Hemoglobin 12.7 g/dL (12.0-15.0); Lymphocyte # 0.74 X10^3/ul (0.83-4.51); Lymphocyte % 11.4 % (19-41); Mean Corpuscular Hgb 32.2 pg (27.0-32.0); Mean Corpuscular Volume 94.9 fL (81-99); Mean Platelet Vol. 8.8 fl (6.2-12.0); Monocyte# 0.45 X10^3/uL; Monocyte% 6.9 % (0-10); NRBC Flagged by Analyzer 0 % (0-5); Neutrophil # 5.17 X10^3/uL (2.7-7.7); Neutrophil % 79.4 % (47-70); Platelet Count 263 K/mm3 (150-450); RBC Distribution Width CV 12.2 % (11.6-14.6); Red Blood Count 3.94 M/mm3 (4.2-5.4); White Blood Count 6.5 K/mm3 (4.4-11.0)
[2025-01-16 12:02] LABS: ALB/GLOB Ratio 1.5 RATIO (0.9-2.4); AST(SGOT) 215 U/L (<=31); Alanine Aminotransfer ALT/SGPT 140 U/L (<=34); Albumin, Serum 4.3 g/dL (3.4-4.8); Alkaline Phosphatase 90 U/L (35-104); Anion Gap 10 (5-15); BUN 18 mg/dL (4-19); BUN/Creat Ratio 23.9 RATIO (10-20); Calcium,Total 9.1 mg/dL (7.6-11.0); Chloride 101 mmol/L (98-108); Creatinine, Serum 0.76 mg/dL (0.70-1.20); EST Glomerular Filtration Rate 90 (>60); Globulin 2.9 g/dL (2.2-4.2); Glucose 107 mg/dL (70-99); Potassium 4.5 mmol/L (3.3-5.1); Protein, Total 7.2 g/dL (5.9-8.4); Sodium Level 137 mmol/L (133-145); Total Bilirubin 0.21 mg/dL (0.00-1.30)
== END | disposition home or self-care (01) ==
LOC: MTLAB 08:37
PROVIDERS: PCP Internal Medicine; Referring Provider Internal Medicine Rheumatology; Visit Provider Internal Medicine Rheumatology
DX: M06.4 Inflammatory polyarthropathy (principal); Z79.899 Other long term (current) drug therapy; K76.0 Fatty (change of) liver, not elsewhere classified
CPT/HCPCS: 36415; 80053; 85025

== ENCOUNTER 2025-07-25 10:09 | Emergency (ER) | payer MEDICARE, SELFPAY ==
[2025-07-25 10:10] VITALS: BP 186/86; PULSE 66; RESP 16; TEMP 36.3; O2SAT 100; BMI 41.8
--- NOTE | 2025-07-25 10:19 | EKG12_ITS ---
Test Reason : ABN LABS Blood Pressure : */* mmHG Vent. Rate : 65 BPM Atrial Rate : 65 BPM P-R Int : 202 ms QRS Dur : 70 ms QT Int : 378 ms P-R-T Axes : 14 -13 11 degrees QTcB Int : 393 ms Normal sinus rhythm with sinus arrhythmia Inferior infarct , age undetermined Abnormal ECG Confirmed by JF PIERSON, JAJA ([id number]), supervising film or videotape editor FLOR JAMES ([id number]) on 07/27/2025 10:30:47 AM Referred By: [place] Confirmed By: JAJA RHOADES MD
--- NOTE | 2025-07-25 10:22 | EX.ED.DYSGE1 ---
HPI History of Present Illness Chief Complaint: Abn Labs Narrative Narrative: Patient is a 59-year-old female with past medical history of breast cancer, hypertension who presented to the emergency department chief complaint of abnormal labs. Patient states that she is scheduled to have knee replacement on August 10 and states that she had screening blood work obtained noted that her potassium is elevated and her sodium was low. They had her repeat these labs and noted that her potassium was slightly higher on her repeat test therefore they advised her to go to the emergency department. Patient states that she feels overall weak but has no specific complaints at this point time. [facility] Medical History Trigeminal nerve disease or syndrome Breast cancer Constipation Home Medications ?Medication ?Instructions ?Recorded ?Last Taken ?Type baclofen 10 mg tablet 5 - 10 mg PO Q6H PRN 07/24/24 07/24/24 History bupropion HCl 300 mg 24 hr tablet, 300 mg PO DAILY 07/24/24 Unknown History extended release carbamazepine 200 mg tablet 400 mg PO DAILY 07/24/24 Unknown History duloxetine 30 mg capsule,delayed 30 mg PO DAILY 07/24/24 Unknown History release duloxetine 60 mg capsule,delayed 60 mg PO DAILY 07/24/24 Unknown History release folic acid 1 mg tablet 2 mg PO DAILY 07/24/24 Unknown History gabapentin 600 mg tablet 600 mg PO TID 07/24/24 Unknown History leucovorin calcium 25 mg tablet 25 mg PO QWEEK 07/24/24 Unknown History lisinopril 10 mg tablet 10 mg PO DAILY 07/24/24 Unknown History metformin 500 mg tablet 500 mg PO BID 07/24/24 Unknown History multivitamin 1 tab PO DAILY 07/24/24 Unknown History Allergy/AdvReac Type Severity Reaction Status Date / Time Environmental Allergies: Allergy Other Verified 07/25/25 10:13 Uncoded (seasonal) Fish Containing Products Allergy PT UNSURE Verified 07/25/25 10:13 OF REACTION Penicillins Allergy Hives Verified 07/25/25 10:13 Social History Smoking Status: Never smoker ROS ROS ED ROS Narrative Constitutional: Denies fevers, chills, headaches, lightness, dizziness Eyes: Denies double vision Cardiovascular: Denies chest pain Respiratory: Denies coughing wheezing shortness of breath Abdomen: Complains of diarrhea denies any abdominal pain nausea vomiting denies black stools or blood in her stool : Denies any urinary symptoms Neurological: Denies any numbness, weakness, tingling Musculoskeletal: Denies back pain Skin: Denies any rashes or lesions EXAM Physical Exam Narrative Exam Narrative: General: Patient is lying in bed rest comfortably did not appear to be acute distress Head: Atraumatic, normocephalic Eyes: PERRL bilaterally, EOMI bilateral, no conjunctival injection noted Neck: Soft, supple, trachea midline Cardiovascular: Regular rate and rhythm Respiratory: Clear to auscultation bilaterally Abdomen: Soft, nondistended, no tenderness to palpation Extremities: +5/5 strength noted in the bilateral upper and lower extremities, radial pulses +2/4 and about extremities, no pedal edema on exam Neurological: Patient following commands knew that she was at [facility] years 2024 Skin: Warm, dry, intact no rashes or lesions noted Const Vital Signs: 07/25/25 10:10 07/25/25 10:58 Temperature 97.3 F L Temperature Source Oral Pulse Rate 66 Respiratory Rate 16 Respiratory Pattern Normal Blood Pressure 186/86 H Blood Pressure Mean 119 Pulse Ox 100 Oxygen Delivery Method Room Air MDM MDM MDM Narrative Medical decision making narrative: Patient is a 59-year-old female who presented to the emergency department the chief complaint of hyponatremia and hyperkalemia. On the differential diagnose includes but not limited to laboratory error, psychogenic polydipsia, hyperkalemia. Once workup is obtained reviewed she will be reevaluated. Patient be given a liter of fluids. Patient's CBC was reviewed and showed a white blood count 3.4, hemoglobin stable at 12, platelet count was noted be 209. Patient sodium is 129 which is improved from recent blood draw at 127, potassium is normal at 4.9 despite outside blood work testing showed elevated potassium level, creatinine normal at 0.75. Patient AST and ALT were normal at 21 and 15 respectively, urinalysis reviewed showed no evidence of infection. Patient's EKG was reviewed as well which showed sinus rhythm with a rate of 65 bpm with ID interval of 202. Patient blood pressure was elevated to 186/86 however she is asymptomatic she was advised to take her blood pressure medication as prescribed and keep a close eye on this. Discussed results with the patient she would like to go home at this point time. Patient is advised to drink Gatorade, Powerade, Pedialyte etc. over the next few days and have her sodium rechecked by her primary care physician. She is encouraged return with worsening symptoms or any concerns. All question concerns answered she was discharged home in stable condition. Lab Data Labs: Laboratory Results - last 24 hr 07/25/25 07/25/25 09:50 10:55 WBC 3.4 L RBC 3.88 L Hgb 12.0 Hct 35.4 L MCV 91.2 MCH 30.9 MCHC 33.9 RDW Std Deviation 38.6 RDW Coeff of Jennifer 11.6 Plt Count 209 MPV 8.7 Immature Gran % (Auto) 0.000 Neut % (Auto) 44.9 L Lymph % (Auto) 33.5 [place] % (Auto) 14.3 H Eos % (Auto) 6.4 H Baso % (Auto) 0.9 Absolute Neuts (auto) 1.5 L Absolute Lymphs (auto) 1.15 Nucleated RBC % 0 Sodium 129 L Potassium 4.9 Chloride 97 L Carbon Dioxide 20.1 L Anion Gap 12 BUN 12 Creatinine 0.75 Estim Creat Clear Calc 111.04 Est GFR (MDRD) Non-Af 91 BUN/Creatinine Ratio 15.7 Glucose 93 Calcium 8.6 Total Bilirubin 0.16 AST 21 ALT 15 Alkaline Phosphatase 64 Total Protein 6.5 Albumin 4.0 Globulin 2.5 Albumin/Globulin Ratio 1.6 Urine Color Yellow Urine Clarity Clear Urine pH 7.0 Ur Specific [place] 1.010 Urine Protein 15 H Urine Glucose (UA) Normal Urine Ketones Negative Urine Occult Blood Negative Urine Nitrite Negative Urine Bilirubin Negative Urine Urobilinogen Normal Ur Leukocyte Esterase 500 H Urine RBC 0 SEEN Urine WBC 0-5 SEEN Ur Squamous Epith Cells 10-25 SEEN Urine Bacteria 0 SEEN Urine Mucus 0 SEEN Discharge Plan Triage Chief Complaint: Abn Labs ED Provider: Luke Quintero Dx/Rx/DC Orders Clinical Impression: Generalized weakness, Acute hyponatremia, Hypertension Prescriptions: No Action carbamazepine 200 mg tablet 400 mg PO DAILY gabapentin 600 mg tablet 600 mg PO TID metformin 500 mg tablet 500 mg PO BID leucovorin calcium 25 mg tablet 25 mg PO QWEEK baclofen 10 mg tablet 5 - 10 mg PO Q6H PRN lisinopril 10 mg tablet 10 mg PO DAILY folic acid 1 mg tablet 2 mg PO DAILY bupropion HCl 300 mg tablet extended release 24 hr 300 mg PO DAILY duloxetine 30 mg capsule,delayed release(DR/EC) 30 mg PO DAILY duloxetine 60 mg capsule,delayed release(DR/EC) 60 mg PO DAILY multivitamin Tablet 1 tab PO DAILY Primary Care Provider: Kiara Mckenzie Referrals: Kiara Mckenzie MD [Primary Care Provider, Internal Medicine] Activity Restrictions/Additional Instructions: Your potassium here today was normal, your sodium was slightly low drink Gatorade, Powerade, Pedialyte as well as water. Have your doctor recheck your sodium in a few days. Return with worsening symptoms or other concerns. Your kidney function was normal. Print Language: German Disposition Disposition: Home, Self Care
[2025-07-25] MEDS: 0.9% Normal Saline (1000mL) 1,000 ML 999 ML IV (10:39)
[2025-07-25 10:56] LABS: Mucous, Urine 0 SEEN /hpf (<or=2+); Red Blood Cells-Urine 0 SEEN /hpf (0-5)
[2025-07-25 11:00] LABS: Color, Urine Yellow (Yellow); Glucose, Dipstick Normal (Normal); Ketone-Dipstick Negative (Negative); Leukocyte Esterase-Dipstick 500 /ul (Negative); Nitrite-Dipstick Negative (Negative); Occult Blood-Urine Negative /ul (Negative); Protein-Dipstick 15 mg/dl (Negative); Specific Gravity, Urine 1.010 (1.002-1.030); Urine Bilirubin Dipstick Negative (Negative)
[2025-07-25 11:05] LABS: Hematocrit 35.4 % (37-47); Hemoglobin 12.0 g/dL (12.0-15.0); Immature Granulocytes Count 0.000 X10^3/uL (0.0-0.0); Mean Corp Hgb Conc 33.9 g/dL (32-36); Mean Corpuscular Volume 91.2 fL (81-99); Mean Platelet Vol. 8.7 fl (6.2-12.0); NRBC Flagged by Analyzer 0 % (0-5); Platelet Count 209 K/mm3 (150-450); RBC Distribution Width CV 11.6 % (11.6-14.6); RBC Distribution Width SD 38.6 fl (35.1-43.9); Red Blood Count 3.88 M/mm3 (4.2-5.4); White Blood Count 3.4 K/mm3 (4.4-11.0)
[2025-07-25 11:18] LABS: Squamous Epithelial Cells - UA 10-25 SEEN /hpf (5-10)
[2025-07-25 11:25] LABS: AST(SGOT) 21 U/L (<=31); Alanine Aminotransfer ALT/SGPT 15 U/L (<=34); Albumin, Serum 4.0 g/dL (3.4-4.8); Alkaline Phosphatase 64 U/L (35-104); Anion Gap 12 (5-15); BUN 12 mg/dL (4-19); BUN/Creat Ratio 15.7 RATIO (10-20); Calcium,Total 8.6 mg/dL (7.6-11.0); Carbon Dioxide 20.1 mmol/L (21.0-32.0); Chloride 97 mmol/L (98-108); Estimated Creatinine Clearance 111.04 ml/min (50-250); Globulin 2.5 g/dL (2.2-4.2); Glucose 93 mg/dL (70-99); Potassium 4.9 mmol/L (3.3-5.1)
[2025-07-25 11:41] VITALS: BP 153/84; PULSE 62; RESP 14; O2SAT 100
[2025-07-25 11:47] VITALS: BP 153/84; PULSE 62; RESP 14; TEMP 36.2; O2SAT 100
== END 2025-07-25 11:49 | disposition home or self-care (01) ==
PROVIDERS: Emergency Provider Emergency Medicine; PCP Internal Medicine; Visit Provider Emergency Medicine
DX: R53.1 Weakness (principal); E87.1 Hypo-osmolality and hyponatremia; Z85.3 Personal history of malignant neoplasm of breast; I10 Essential (primary) hypertension; E87.5 Hyperkalemia
CPT/HCPCS: 80053; 81001; 85025; 93005; 96360; 99282

== ENCOUNTER 2025-08-30 16:40 | Emergency (ER) | payer MEDICARE, SELFPAY ==
[2025-08-30 16:41] VITALS: BP 170/85; PULSE 79; RESP 20; TEMP 37.1; O2SAT 100
[2025-08-30 18:24] VITALS: BP 174/107; PULSE 76; RESP 16; TEMP 36.6; O2SAT 100
== END 2025-08-30 18:25 | disposition home or self-care (01) ==
PROVIDERS: Emergency Provider Emergency Medicine; PCP Internal Medicine; Visit Provider Emergency Medicine
DX: I89.0 Lymphedema, not elsewhere classified (principal); R03.0 Elevated blood-pressure reading, without diagnosis of hypertension; G50.0 Trigeminal neuralgia; Z96.651 Presence of right artificial knee joint; Z79.899 Other long term (current) drug therapy
CPT/HCPCS: 93971; 99282